=== PATIENT | female | born 1965 | race Caucasian/White ===

== ENCOUNTER → 2020-06-12 | Day surgery (SDC) | payer BC, OTHER ==
[~2020-06-12] MED LIST: AUGMENTIN 875-1 EACH PO; BENZOCAINE/TETRACAINE/BUTAMBEN AERO SPRAY 56 GM CAN ONE; COLACE100 MG PO; CYCLOSET0.8 MG PO; FLEXERIL10 MG PO; JARDIANCE25 MG PO; LIDOCAINE HCL 2% LOCAL INJ 5 ML SDV VIAL INJ ONE; LIPITOR20 MG PO; Lovenox SQ; NORCO 10MG-325MG1 EA PO; OZEMPIC1 MG/0.75 SC; POVIDONE IODINE 0.05% 0.05 % ML PO ONE; PRAVACHOL40 MG PO; PROPOFOL IV EMULSION 10 MG/ML 20 ML VIAL ONE; ZOFRAN4 MG PO
[2020-06-12 08:55] VITALS: BP 110/70
== END | disposition home or self-care (01) ==
LOC: ENDO 05:52
PROVIDERS: ATTEND Surgery
DX: K29.70 Gastritis, unspecified, without bleeding (principal); K20.90 Esophagitis, unspecified without bleeding; K31.1 Adult hypertrophic pyloric stenosis; R13.10 Dysphagia, unspecified; Z88.8 Allergy status to other drugs, medicaments and biological substances; Z91.041 Radiographic dye allergy status; Z01.810 Encounter for preprocedural cardiovascular examination; E11.9 Type 2 diabetes mellitus without complications; Z98.84 Bariatric surgery status; Z79.84 Long term (current) use of oral hypoglycemic drugs
CPT/HCPCS: 36415; 43239; 82948; 88305; 88312; 93005; J2001; J2704; 43235

== ENCOUNTER → 2020-08-28 | Day surgery (SDC) | payer BC ==
[~2020-08-28] MED LIST changes: +ACETAMINOPHEN 1000 MG/100 ML 100 ML IV ONE; -BENZOCAINE/TETRACAINE/BUTAMBEN AERO SPRAY 56 GM CAN ONE; +BUPIVACAINE HCL 0.5% INJ 30 ML VIAL INJ ONE; +DEXAMETHASONE SOD PHOS INJ 4 MG/ML VIAL ONE; +FENTANYL CITRATE/PF 100MCG/2 ML INJ ONE; +LABETALOL HCL 5 MG/ML 20ML VIAL ONE; +LIDOCAINE HCL 2% JELLY 5 ML TUBE ONE; +MIDAZOLAM HCL 2 MG/2 ML VIAL ONE; +ONDANSETRON HCL INJ 2MG/ML 2ML 2 MG/ML VIAL ONE; +ROCURONIUM BROMIDE 10 MG/ML 5ML VIAL IV ONE; +SEVOFLURANE INHAL SOLN 250 ML PEN BTL ONE; +SODIUM CHLORIDE 0.9% 50ML 100 ML ONE
[2020-08-28 09:21] LABS: ANION GAP 16.2 mmol/L (8-16); CREATININE, SERUM 0.75 mg/dL (0.57-1.11); POTASSIUM 4.2 mmol/L (3.5-5.1)
[2020-08-28 14:20] VITALS: BP 130/70
== END | disposition home or self-care (01) ==
LOC: OR 08:00
PROVIDERS: ATTEND Surgery
DX: K31.1 Adult hypertrophic pyloric stenosis (principal); K66.0 Peritoneal adhesions (postprocedural) (postinfection); R11.0 Nausea; E11.9 Type 2 diabetes mellitus without complications; E78.5 Hyperlipidemia, unspecified; Z88.8 Allergy status to other drugs, medicaments and biological substances; Z91.041 Radiographic dye allergy status; Z79.84 Long term (current) use of oral hypoglycemic drugs
CPT/HCPCS: 36415; 43774; 80048; J0131; J0690; J1100; J2001 ×2; J2250; J2405; J2704; J3010; J3490